=== PATIENT | female | born 1985 | race American Indian/Alaskan Native ===

== ENCOUNTER 2019-04-14 16:49 | Emergency (ER) | payer SELFPAY ==
[2019-04-14 17:41] VITALS: BP 118/84
--- NOTE | 2019-04-14 17:53 | Emergency Department Report ---
Blank Doc - Documentation Documentation: 33-year-old female that presents with n/v and epigastric pain. This initial assessment/diagnostic orders/clinical plan/treatment(s) is/are subject to change based on patient's health status, clinical progression and re- assessment by fellow clinical providers in the ED. Further treatment and workup at subsequent clinical providers discretion. Patient/guardians urged not to elope from the ED as their condition may be serious if not clinically assessed and managed. Initial orders include: 1- Patient sent to [facility] for further evaluation and treatment 2- UA 3- labs
== END 2019-04-14 23:00 | disposition left against medical advice (07) ==
LOC: ED 16:49
DX: R11.10 Vomiting, unspecified (principal); Z53.21 Procedure and treatment not carried out due to patient leaving prior to being seen by health care provider

== ENCOUNTER 2019-04-15 15:32 | Emergency (ER) | payer BC ==
--- NOTE | 2019-04-15 15:40 | Event Note ---
ED Screening Note Date of service: 04/15/19 Time: 15:39 ED Screening Note: This is a 33 y.o. F. that presents to the ER with vomiting and epigastric pain for 72 hours. LMP 04/01/2019 - recent travel, diarrhea, cough, myalgia, weakness, chest pain, or palpitations Patient states she went to [facility] this morning and negative . This initial assessment/diagnostic orders/clinical plan/treatment(s) is/are subject to change based on patients health status, clinical progression and re- assessment by fellow clinical providers in the ED. Further treatment and workup at subsequent clinical providers discretion. Patient/guardian urged not to elope from the ED as their condition may be serious if not clinically assessed and managed. Initial orders include: Labs
[2019-04-15 16:08] LABS: Basophils # (Auto) 0.1 K/mm3 (0.0-0.1); Basophils % (Auto) 1.1 % (0.0-1.8); Eosinophils # (Auto) 0.1 K/mm3 (0.0-0.4); Eosinophils % (Auto) 1.2 % (0.0-4.3); Hematocrit 39.1 % (30.3-42.9); Hemoglobin 13.4 gm/dl (10.1-14.3); Lymphocytes # (Auto) 2.6 K/mm3 (1.2-5.4); Lymphocytes % (Auto) 28.5 % (13.4-35.0); Mean Corpuscular HGB Conc 34 % (30-34); Mean Corpuscular Volume 92 fl (79-97); Monocytes # (Auto) 0.7 K/mm3 (0.0-0.8); Monocytes % (Auto) 7.7 % (0.0-7.3); Platelet Count 425 K/mm3 (140-440); Red Blood Count 4.26 M/mm3 (3.65-5.03); Red Cell Distribution Width 13.4 % (13.2-15.2)
[2019-04-15 16:29] LABS: Alanine Aminotransferase 12 units/L (7-56); Albumin 4.6 g/dL (3.9-5); BUN/Creatinine Ratio 13; Blood Urea Nitrogen 9 mg/dL (7-17); Calcium 9.9 mg/dL (8.4-10.2); Hemolysis Index 83
[2019-04-15] MEDS ORDERED: ZOFRAN IV ONE (17:29)
[2019-04-15] MEDS ORDERED: NACL 0.9% 1000 ML 1,000 ML IV ONE (18:40)
[2019-04-15] MEDS ORDERED: LIDOCAINE VISCOUS 2% PO ONE (18:48)
[2019-04-15] MEDS ORDERED: ALUM-MAG HYDROX-SIMETH 200-200-20MG/5ML PO ONE (18:48)
[2019-04-15] MEDS ORDERED: PEPCID IV ONE (18:48)
--- NOTE | 2019-04-15 18:48 | Emergency Department Report ---
ED N/V/D HPI - General Chief complaint: Nausea/Vomiting/Diarrhea Stated complaint: VOMITING Time Seen by Provider: 04/15/19 15:39 Source: patient Mode of arrival: Ambulatory Limitations: No Limitations - History of Present Illness Initial comments: 33-year-old female presents to ED with nausea, vomiting, abdominal pain. Patient reports onset of symptoms 3 days ago. Patient reports epigastric pain associated. Denies fever or diarrhea. Patient denies any sick contacts or no food poisoning. No previous history of chronic GI symptoms MD complaint: nausea, vomiting, abdominal pain -: days(s) (3) Associated Abdominal Pain: Yes Location: epigastric Radiation: none Severity: moderate Quality: cramping Consistency: intermittent Improves with: none Worsens with: none Associated Symptoms: nausea/vomiting. denies: cough, fever/chills, shortness of breath - Related Data Previous Rx's Medication Instructions Recorded Last Taken Type Dicyclomine [Bentyl] 20 mg PO QID PRN #20 tablet 04/15/19 Unknown Rx Ondansetron [Zofran Odt] 4 mg PO Q8HR PRN #20 tab.rapdis 04/15/19 Unknown Rx Allergies Allergy/AdvReac Type Severity Reaction Status Date / Time No Known Allergies Allergy Unverified 04/14/19 16:56 ED Review of Systems ROS: Stated complaint: VOMITING Other details as noted in HPI Comment: All other systems reviewed and negative Constitutional: denies: chills, fever Respiratory: denies: cough Gastrointestinal: abdominal pain, nausea, vomiting. denies: diarrhea ED Past Medical Hx - Past Medical History Previous Medical History?: No - Surgical History Past Surgical History?: No - Social History Smoking Status: Current Every Day Smoker Substance Use Type: Alcohol, Marijuana - Medications Home Medications: Home Medications Medication Instructions Recorded Confirmed Last Taken Type Dicyclomine [Bentyl] 20 mg PO QID PRN #20 tablet 04/15/19 Unknown Rx Ondansetron [Zofran Odt] 4 mg PO Q8HR PRN #20 tab.rapdis 04/15/19 Unknown Rx ED Physical Exam - General Limitations: No Limitations General appearance: alert, in no apparent distress - Head Head exam: Present: atraumatic, normocephalic - Eye Eye exam: Present: normal appearance - ENT ENT exam: Present: mucous membranes moist - Neck Neck exam: Present: normal inspection - Respiratory Respiratory exam: Present: normal lung sounds bilaterally. Absent: respiratory distress - Cardiovascular Cardiovascular Exam: Present: regular rate, normal rhythm - GI/Abdominal GI/Abdominal exam: Present: soft, tenderness (moderate epigastric). Absent: distended - Extremities Exam Extremities exam: Present: normal inspection - Neurological Exam Neurological exam: Present: alert, oriented X3 - Psychiatric Psychiatric exam: Present: normal affect, normal mood - Skin Skin exam: Present: warm, dry, intact, normal color ED Course Vital Signs 04/15/19 04/15/19 04/15/19 15:37 18:54 19:51 Temperature 98.5 F 97.5 F L Pulse Rate 82 64 67 Respiratory 18 20 18 Rate Blood Pressure 107/74 Blood Pressure 107/68 109/67 [Right] O2 Sat by Pulse 95 100 97 Oximetry ED Medical Decision Making - Lab Data Result diagrams: 04/15/19 15:44 04/15/19 15:44 - Radiology Data Radiology results: report reviewed, image reviewed - Medical Decision Making - vitals stable - labs unremarkable - tolerating PO - CT shows possible peptic ulcer disease, no perforation or any other acute abnormalities - Differential Diagnosis gastroenteritis, pancreatitis, gastritis Critical care attestation.: If time is entered above; I have spent that time in minutes in the direct care of this critically ill patient, excluding procedure time. ED Disposition Clinical Impression: Nausea & vomiting, Abdominal pain Disposition: DC-01 TO HOME OR SELFCARE Is pt being admited?: No Condition: Stable Instructions: Gastritis (ED), Acute Nausea and Vomiting (ED), Abdominal Pain (ED) Prescriptions: Dicyclomine [Bentyl] 20 mg PO QID PRN #20 tablet PRN Reason: abdominal pain Ondansetron [Zofran Odt] 4 mg PO Q8HR PRN #20 tab.rapdis PRN Reason: Vomiting Referrals: GENEVIEVE FISH MD [Primary Care Provider] - 3-5 Days [facility] [Provider Group] - 3-5 Days Time of Disposition: 22:15
[2019-04-15 19:19] LABS: Bacteria,Urine 2+ /HPF (Negative); Bilirubin,Urine NEG (Negative); Blood,Urine LG (Negative); Color,Urine Amber (Yellow); Mucus,Urine 3+ /HPF; Urobilinogen,Urine < 2.0 mg/dL (<2.0)
[2019-04-15] MEDS ORDERED: MORPHINE IV ONE (19:41)
[2019-04-15] MEDS ORDERED: MORPHINE ONE (19:44)
--- NOTE | 2019-04-15 22:00 | Cat Scan Report ---
CT ABDOMEN AND PELVIS WITH CONTRAST INDICATION: abd pain, N/V CONTRAST: 100 cc Omnipaque 300 IV COMPARISON: None available. All CT scans at this location are performed using CT dose reduction for ALARA by means of automated e xposure control. NOTE: Resolution is decreased and artifact is introduced by the patient's size. FINDINGS: Lung bases are clear. No pneumoperitoneum is seen. Liver is mildly enlarged with a length o f 19.2 cm. No focal lesions are seen. Spleen appears within normal limits. Tiny probable cysts are se en in the left kidney. No urinary obstructive changes are seen. Gallbladder and bile ducts appear wit hin normal limits. Pancreas shows no abnormalities. The distal stomach shows moderate wall edema not definitely shown by the duodenum. No ulcer is obvious and no perforation is seen. I do not see defini te surrounding inflammatory change but there is a small amount of eve prominence with several small nodes near the antrum and proximal duodenum. These measure only up to 7 mm and are rounded in shape. No other eve prominence is seen. No evidence of bowel obstruction is seen. Appendix appears within normal limits. Multiple bilateral o varian cysts are seen measuring up to 2.7 cm on the left and 2.4 cm on the right. Serpiginous fluid-f illed structure in the right adnexal area may be a hydrosalpinx and possibly there are bilateral hydr osalpinges. No free fluid is seen. No pelvic inflammation is obvious. A calcification is seen in the lower uterine segment/cervix which could be a small leiomyoma. IMPRESSION: 1. Apparent wall edema in the antrum of the stomach. This may relate to peptic ulcer disease though I do not see a alan ulcer or obvious perforation. Clinical evaluation is suggested. This may need end oscopic follow-up. Small adjacent lymph nodes may relate to this process. 2. Bilateral ovarian cysts and probable bilateral hydrosalpinges Signer Name: Koko Piña MD Signed: 04/15/2019 9:55 PM Workstation Name: [email or web address]
[2019-04-15 22:37] VITALS: BP 108/74
== END 2019-04-15 22:36 | disposition home or self-care (01) ==
LOC: ED 15:32
DX: R10.13 Epigastric pain (principal); R11.2 Nausea with vomiting, unspecified; F17.200 Nicotine dependence, unspecified, uncomplicated; F12.10 Cannabis abuse, uncomplicated
CPT/HCPCS: 36415; 74177; 80053; 81001; 83690; 84703; 85025; 96374; 96375; J2270; J2405; J7030; Q9967